=== PATIENT | female | born 2000 | race Caucasian/White ===

== ENCOUNTER 2021-06-10 18:57 | Emergency (ER) | payer BC, OTHER ==
--- NOTE | 2021-06-10 20:06 | RAD REPORT ---
EXAM DESCRIPTION: CT - Head Brain Wo Cont - 06/10/2021 7:58 pm CLINICAL HISTORY: numbness right arm COMPARISON: No comparisons TECHNIQUE: All CT scans are performed using dose optimization technique as appropriate and may inclu de automated exposure control or mA/KV adjustment according to patient size. FINDINGS: No intracranial hemorrhage, hydrocephalus or extra-axial fluid collection.No areas of brai n edema or evidence of midline shift. Circumferential thickening in the maxillary sinuses and ethmoid air cells. The calvarium is intact. IMPRESSION: No acute intracranial abnormality.
[2021-06-10] MEDS ORDERED: NA CHLORIDE 0.9% 1,000 ML ONE (20:09)
[2021-06-10 20:12] LABS: Urine Blood Negative (Negative); Urine Glucose Negative (Negative); Urine Protein 1+ (Negative); Urine Specific Gravity >=1.030 (1.005-1.030)
[2021-06-10 20:28] LABS: Absolute Lymphocytes (CBC) 0.7 K/uL (0.7-4.9); Hematocrit 35.9 % (36.0-45.0); Lymphocytes % 6.2 % (15.3-44.8); MPV 7.8 fL (7.6-11.3); RBC Red Blood Cell Count 4.04 M/uL (3.86-4.86)
[2021-06-10 20:52] LABS: ALT/SGPT 17 U/L (12-78); AST/SGOT 14 U/L (15-37); Albumin 3.6 g/dL (3.4-5.0); Alkaline Phosphatase 65 U/L (45-117); BUN Blood Urea Nitrogen 15 mg/dL (7-18); Bicarbonate 26 mmol/L (21-32); Bilirubin Direct 0.2 mg/dL (0-0.2); Bilirubin Total 0.7 mg/dL (0.2-1.0); Glucose Level 99 mg/dL (74-106); Lipase 72 U/L (73-393); Potassium 3.4 mmol/L (3.5-5.1); Protein, Total 7.5 g/dL (6.4-8.2); Sodium Level 138 mmol/L (136-145)
[2021-06-10 21:05] LABS: SARS-COV-2 RT PCR NEGATIVE (NEGATIVE)
--- NOTE | 2021-06-10 21:59 | ER ---
Nurse's Notes [facility] Name: Elida Mills Age: 21 yrs Sex: Female : 2000 Arrival Date: 06/10/2021 Time: 19:01 Bed 2 Private MD: Diagnosis: Vomiting;Diarrhea, unspecified;Paresthesia of skin;Acute sinusitis, unspecified Presentation: 06/10 19:17 Chief complaint: Patient states: "I stayed at home this afternoon from work. I had been tw5 having diarrhea and vomiting since yesterday. I woke up at 1700 with chills and shaking and then my right arm went numb. My right arm still feels tingling from the elbow down.". Coronavirus screen: Vaccine status: Patient reports being unvaccinated. Ebola Screen: Patient negative for fever greater than or equal to 101.5 degrees Fahrenheit, and additional compatible Ebola Virus Disease symptoms Patient denies exposure to infectious person. Patient denies travel to an Ebola-affected area in the 21 days before illness onset. Initial Sepsis Screen: Does the patient meet any 2 criteria? No. Patient's initial sepsis screen is negative. Does the patient have a suspected source of infection? No. Patient's initial sepsis screen is negative. Risk Assessment: Do you want to hurt yourself or someone else? Patient reports no desire to harm self or others. Onset of symptoms is unknown. 19:17 Method Of Arrival: Ambulatory tw5 19:17 Acuity: CARLOS 3 tw5 Triage Assessment: 19:22 General: Appears in no apparent distress. Behavior is calm, cooperative, appropriate tw5 for age. Pain: Complains of pain in dorsal aspect of right forearm, right wrist and right hand Pain currently is 6 out of 10 on a pain scale. GI: Reports diarrhea, nausea, vomiting. 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 - Social history:: Smoking status: Patient denies any tobacco usage or history of. Screenin:23 Abuse screen: Denies threats or abuse. Denies injuries from another. Nutritional tw5 screening: No deficits noted. Tuberculosis screening: No symptoms or risk factors identified. Fall Risk None identified. Assessment: 19:58 General: Appears uncomfortable, Behavior is calm, cooperative. Pain: Complains of pain ll3 in suprapubic area. Neuro: Level of Consciousness is awake, alert, obeys commands, Oriented to person, place, time, situation, Reports headache numbness in right arm. Cardiovascular: Patient's skin is warm and dry. Respiratory: Respiratory effort is even, unlabored, Respiratory pattern is regular, symmetrical. GI: Abdomen is flat, non-distended, Stools are reported to be loose, Reports lower abdominal pain, diarrhea, intolerance of fluids, intolerance of food, vomiting, since Since yesterday. : Reports urinary frequency. EENT: Reports nasal congestion nasal discharge Sore throat. Derm: Skin is pink, warm \\T\\ dry. 20:43 Reassessment: Patient appears in no apparent distress at this time. as6 21:51 Reassessment: Patient is alert, oriented x 3, equal unlabored respirations, skin ll3 warm/dry/pink. Vital Signs: 19:17 BP 95 / 48; Pulse 84; Resp 18; Temp 98.6; Pulse Ox 96% on R/A; Weight 63.5 kg; Height 5 tw5 ft. 2 in. (157.48 cm); Pain 6/10; 20:42 BP 108 / 73; Pulse 102; Resp 20 S; Pulse Ox 98% on R/A; as6 21:51 BP 102 / 66; Pulse 93; Resp 15; Pulse Ox 98% on R/A; ll3 23:00 BP 103 / 56; Pulse 87; Resp 18 S; Pulse Ox 97% on R/A; as6 19:17 Body Mass Index 25.61 (63.50 kg, 157.48 cm) tw5 ED Course: 19:01 Patient arrived in ED. ja2 19:20 Triage completed. tw5 19:22 Arm band placed on left wrist. tw5 19:23 Patient has correct armband on for positive identification. tw5 19:32 Siddharth Archibald RN is Primary Nurse. as6 19:34 German Mason NP is PHCP. pm1 19:34 Ravi Love MD is Attending Physician. pm1 19:57 CT Head Brain wo Cont In Process Unspecified. EDMS 20:17 Inserted saline lock: 20 gauge in right antecubital area, using aseptic technique. oe Blood collected. 20:18 COVID-19/FLU A+B (Document "Date of Onset" if Symptomatic) Sent. oe 20:18 Strep Sent. oe 23:13 No provider procedures requiring assistance completed. IV discontinued, intact, as6 bleeding controlled, No redness/swelling at site. Pressure dressing applied. Administered Medications: 20:10 Drug: NS 0.9% 1000 ml Route: IV; Rate: 1000 ml; Site: right antecubital; ll3 21:54 Follow up: Response: No adverse reaction; IV Status: Completed infusion; IV Intake: ll3 1000ml 22:45 Drug: Rocephin (cefTRIAXone) 1 grams Route: IV; Rate: calculated rate; Site: right ll3 antecubital; 23:13 Follow up: Response: No adverse reaction; IV Status: Completed infusion; IV Intake: [id number] Intake: 21:54 IV: 1000ml; Total: 1000ml. ll3 23:13 IV: 50ml; Total: 1050ml. as6 Outcome: 21:59 Discharge ordered by . pm1 23:13 Discharged to home ambulatory, with family. as6 23:13 Condition: stable 23:13 Discharge instructions given to patient, Instructed on discharge instructions, follow up and referral plans. medication usage, Demonstrated understanding of instructions, follow-up care, medications, Prescriptions given X 2. 23:14 Patient left the ED. as6 Signatures: Dispatcher [employer] EDMS German Mason, LEONA UNDERGROUND FOREMAN pm1 Bob Kline oe Kelli Pantoja Tiffany tw5 Siddharth Archibald, LILIANE RN as6 Donnie Rios RN RN ll3
--- NOTE | 2021-06-10 21:59 | EDPHYS ---
Physician Documentation [facility] Name: Elida Mills Age: 21 yrs Sex: Female : 2000 Arrival Date: 06/10/2021 Time: 19:01 Bed 2 Private MD: ED Physician Ravi oLve HPI: 06/10 19:53 This 21 yrs old Female presents to ER via Ambulatory with complaints of Vomiting, pm1 Numbness Of Arm, Ear Pain, CHILLS. 19:53 The patient presents to the emergency department with nausea, vomiting, diarrhea, fever pm1 onset today. Sinus congestion and pain for 2 weeks. Possible causes: unknown. The symptoms are aggravated by nothing. The symptoms are alleviated by nothing. Associated signs and symptoms: Pertinent positives: fever, Pertinent negatives: abdominal pain, dysuria. Severity of symptoms: in the emergency department the symptoms are worse. The patient has not experienced similar symptoms in the past. The patient has not recently seen a physician. 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 - Social history:: Smoking status: Patient denies any tobacco usage or history of. ROS: 19:53 Cardiovascular: Negative for chest pain, palpitations, and edema, Respiratory: Negative pm1 for shortness of breath, cough, wheezing, and pleuritic chest pain. 19:53 Back: Negative for injury and pain, MS/Extremity: Negative for injury and deformity, Skin: Negative for injury, rash, and discoloration, Neuro: Negative for headache, weakness, numbness, tingling, and seizure. 19:53 Constitutional: Positive for fever, poor PO intake. 19:53 ENT: Positive for ear pain, sinus congestion, sinus pain, Negative for sore throat. 19:53 Abdomen/GI: Positive for nausea and vomiting, diarrhea, Negative for abdominal pain. 19:53 Neuro: Positive for numbness, of the right hand and right forearm. 19:53 All other systems are negative. Exam: 19:53 Constitutional: This is a well developed, well nourished patient who is awake, alert, pm1 and in no acute distress. Head/Face: Normocephalic, atraumatic. 19:53 Skin: Warm, dry with normal turgor. Normal color with no rashes, no lesions, and no evidence of cellulitis. MS/ Extremity: Pulses equal, no cyanosis. Neurovascular intact. Full, normal range of motion. 19:53 Cardiovascular: Exam negative for acute changes, Rate: normal, Rhythm: regular, Pulses: no pulse deficits are appreciated. 19:53 Respiratory: Exam negative for acute changes, respiratory distress, shortness of breath, Breath sounds: are clear throughout. 19:53 Abdomen/GI: Inspection: abdomen appears normal, Palpation: abdomen is soft and non-tender, in all quadrants. 19:53 Neuro: Exam negative for acute changes, Orientation: is normal, Mentation: is normal, Motor: is normal, Sensation: is normal, no obvious gross deficits. Vital Signs: 19:17 BP 95 / 48; Pulse 84; Resp 18; Temp 98.6; Pulse Ox 96% on R/A; Weight 63.5 kg; Height 5 tw5 ft. 2 in. (157.48 cm); Pain 6/10; 20:42 BP 108 / 73; Pulse 102; Resp 20 S; Pulse Ox 98% on R/A; as6 21:51 BP 102 / 66; Pulse 93; Resp 15; Pulse Ox 98% on R/A; ll3 23:00 BP 103 / 56; Pulse 87; Resp 18 S; Pulse Ox 97% on R/A; as6 19:17 Body Mass Index 25.61 (63.50 kg, 157.48 cm) tw5 MDM: 19:49 Patient medically screened. pm1 21:58 Data reviewed: vital signs. Data interpreted: Pulse oximetry: on room air is 98 %. pm1 Interpretation: normal. Counseling: I had a detailed discussion with the patient and/or guardian regarding: the historical points, exam findings, and any diagnostic results supporting the discharge/admit diagnosis, lab results, radiology results, the need for outpatient follow up, to return to the emergency department if symptoms worsen or persist or if there are any questions or concerns that arise at home. 06/10 19:52 Order name: Basic Metabolic Panel; Complete Time: 21:00 pm1 06/10 19:52 Order name: CBC with Diff; Complete Time: 21:00 pm1 06/10 19:52 Order name: Hepatic Function; Complete Time: 21:00 pm1 06/10 19:52 Order name: Lipase; Complete Time: 21:00 pm1 06/10 19:52 Order name: COVID-19/FLU A+B (Document "Date of Onset" if Symptomatic); Complete Time: pm1 21:19 06/10 20:03 Order name: Strep; Complete Time: 21:00 pm1 06/10 19:52 Order name: CT Head Brain wo Cont; Complete Time: 20:15 pm1 06/10 19:52 Order name: IV Saline Lock; Complete Time: 20:10 pm1 06/10 19:52 Order name: Labs collected and sent; Complete Time: 20:10 pm1 06/10 20:11 Order name: Urine Dipstick-Ancillary; Complete Time: 20:15 EDTX 06/10 20:12 Order name: Urine --Ancillary (enter results); Complete Time: 20:28 9 06/10 20:59 Order name: Throat Culture EDTX 06/10 19:52 Order name: Urine Dipstick-Ancillary (obtain specimen); Complete Time: 20:10 pm1 06/10 19:52 Order name: Urine Test (obtain specimen); Complete Time: 20:10 pm1 Administered Medications: 20:10 Drug: NS 0.9% 1000 ml Route: IV; Rate: 1000 ml; Site: right antecubital; ll3 21:54 Follow up: Response: No adverse reaction; IV Status: Completed infusion; IV Intake: ll3 1000ml 22:45 Drug: Rocephin (cefTRIAXone) 1 grams Route: IV; Rate: calculated rate; Site: right ll3 antecubital; 23:13 Follow up: Response: No adverse reaction; IV Status: Completed infusion; IV Intake: [id number] Disposition: 06/11 01:33 Co-signature as Attending Physician, Ravi Love MD. [email or web address] Disposition Summary: 06/10/21 21:59 Discharge Ordered Location: Home pm1 Problem: new pm1 Symptoms: have improved pm1 Condition: Stable pm1 Diagnosis - Vomiting pm1 - Diarrhea, unspecified pm1 - Paresthesia of skin pm1 - Acute sinusitis, unspecified pm1 Followup: pm1 - With: Emergency Department - When: As needed - Reason: Worsening of condition Followup: pm1 - With: Private Physician - When: 2 - 3 days - Reason: Recheck today's complaints, Continuance of care, Re-evaluation by your physician Discharge Instructions: - Discharge Summary Sheet pm1 - Food Choices to Help Relieve Diarrhea, Adult pm1 - Diarrhea, Adult pm1 - Paresthesia pm1 - Viral Gastroenteritis, Adult pm1 - Sinusitis, Adult pm1 - Vomiting, Child pm1 Forms: - Medication Reconciliation Form pm1 - Thank You Letter pm1 - Antibiotic Education pm1 - Prescription Opioid Use pm1 Prescriptions: - ondansetron 4 mg Oral tablet,disintegrating - place 1 tablet by TRANSLINGUAL route every 8 hours As needed; 15 tablet; pm1 Refills: 0, Product Selection Permitted - Augmentin 875-125 mg Oral Tablet - take 1 tablet by ORAL route every 12 hours for 10 days; 20 tablet; Refills: 0, pm1 Product Selection Permitted Signatures: Dispatcher [employer] German Martinez, LEONA BUDGET ENGINEER pm1 Ravi Love MD MD 7 Cris Harmon 5 Donnie Rios RN RN ll3 Siddharth Archibald RN as6
[2021-06-10] MEDS ORDERED: NA CHLORIDE 0.9% 50 ML ONE (22:38)
[2021-06-10] MEDS ORDERED: CEFTRIAXONE 1000 MG/VIAL ONE (22:38)
[2021-06-10 23:34] VITALS: BP 103/56; O2SAT 97
[2021-06-10 23:37] VITALS: TEMP 98.6
== END 2021-06-10 23:14 | disposition home or self-care (01) ==
LOC: ER 18:57
DX: R19.7 Diarrhea, unspecified (principal); J01.90 Acute sinusitis, unspecified; R20.2 Paresthesia of skin; Z20.822 Contact with and (suspected) exposure to COVID-19
CPT/HCPCS: 96365; 96361; 87070; 85025; 80048; 36415; 81025; 80076; 87081; 81003; 83690; 0240U; 70450; 99284; J7030

== ENCOUNTER 2021-12-27 22:36 | Emergency (ER) | payer BC ==
[2021-12-27 23:02] LABS: Urine Blood Negative (Negative); Urine Glucose Negative (Negative); Urine Protein Trace (Negative); Urine pH 8.5 (5.0-7.0)
[2021-12-27 23:21] LABS: Urine Mucus Slight /HPF (None Seen); Urine RBC <5 /HPF (None Seen)
--- NOTE | 2021-12-27 23:31 | RAD REPORT ---
EXAM DESCRIPTION: US - Abdomen Exam Limited - 12/27/2021 11:22 pm CLINICAL HISTORY: N/V Abdominal pain COMPARISON: No comparisons FINDINGS: The gallbladder demonstrates no gallstones. No pericholecystic fluid or gallbladder wall t hickening. The common bile duct is normal measuring 3 mm. The liver demonstrates no findings of intrahepatic biliary dilatation. IMPRESSION: Unremarkable examination.
[2021-12-27] MEDS ORDERED: NA CHLORIDE 0.9% 1,000 ML ONE (23:36)
[2021-12-27] MEDS ORDERED: FAMOTIDINE 20 MG/2 ML VIAL IV ONE (23:36)
[2021-12-27] MEDS ORDERED: ONDANSETRON 4 MG/2 ML VIAL ONE (23:36)
[2021-12-28 00:10] LABS: Hematocrit 34.5 % (36.0-45.0); MCV 86.8 fL (80-100); MPV 8.1 fL (7.6-11.3); RBC Red Blood Cell Count 3.97 M/uL (3.86-4.86)
[2021-12-28 00:21] LABS: ALT/SGPT 19 U/L (12-78); Albumin 3.4 g/dL (3.4-5.0); Alkaline Phosphatase 67 U/L (45-117); BUN Blood Urea Nitrogen 15 mg/dL (7-18); Bicarbonate 26 mmol/L (21-32); Glomerular Filtration Rate 122 ml/min (=/>90); Glucose Level 90 mg/dL (74-106); Lipase 85 U/L (73-393); Protein, Total 6.9 g/dL (6.4-8.2); Sodium Level 140 mmol/L (136-145)
[2021-12-28 00:23] LABS: AST/SGOT 16 U/L (15-37); Bilirubin Total < 0.1 mg/dL (0.2-1.0); Potassium 3.8 mmol/L (3.5-5.1)
[2021-12-28 00:40] LABS: Blood Morphology Comment NOT SEEN (NOT SEEN); Platelet Estimate ADEQ
--- NOTE | 2021-12-28 00:54 | EDPHYS ---
Physician Documentation [facility] Name: Elida Mills Age: 21 yrs Sex: Female : 2000 Arrival Date: 12/27/2021 Time: 22:41 Bed 5 Private MD: ED Physician Bimal Danielle HPI: 12/27 23:00 This 21 yrs old Female presents to ER via Ambulatory with complaints of Vomiting, High cp Blood Sugar. 23:00 The patient presents to the emergency department with vomiting, that is intermittent, cp described as bilious. Onset: The symptoms/episode began/occurred 3 month(s) ago. 23:00 Possible causes: possible diabetes. patient reports when check blood glucose that it cp has been elevated at times. 23:00 Associated signs and symptoms: Pertinent negatives: abdominal pain, anorexia, cp constipation, diarrhea, fever, GI bleeding, active vomiting. Severity of symptoms: in the emergency department the symptoms are unchanged despite home interventions. 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 - Social history:: Smoking status: Patient denies any tobacco usage or history of. Patient/guardian denies using alcohol. ROS: 23:05 Constitutional: Negative for body aches, chills, fever, poor PO intake. cp 23:05 Eyes: Negative for injury, pain, redness, and discharge. cp 23:05 ENT: Negative for drainage from ear(s), ear pain, sore throat, difficulty swallowing, difficulty handling secretions. 23:05 Cardiovascular: Negative for chest pain, edema, palpitations. 23:05 Respiratory: Negative for cough, shortness of breath, wheezing. 23:05 Abdomen/GI: Positive for nausea and vomiting, Negative for abdominal pain, diarrhea, constipation, anorexia, hematemesis. 23:05 Back: Negative for pain at rest, pain with movement. 23:05 : Negative for urinary symptoms. 23:05 Neuro: Negative for altered mental status, dizziness, headache, weakness. 23:05 All other systems are negative. Exam: 23:10 Constitutional: The patient appears in no acute distress, alert, awake, comfortable, cp non-toxic, well developed, well nourished. 23:10 Head/Face: Normocephalic, atraumatic. cp 23:10 Eyes: Periorbital structures: appear normal, Conjunctiva: normal, no exudate, no injection, Sclera: no appreciated abnormality, Lids and lashes: appear normal, bilaterally. 23:10 ENT: External ear(s): are unremarkable, Nose: is normal, Mouth: Lips: moist, Oral mucosa: pink and intact, moist, Posterior pharynx: Airway: no evidence of obstruction, patent. 23:10 Chest/axilla: Inspection: normal. 23:10 Cardiovascular: Rate: tachycardic, Rhythm: regular, Edema: is not appreciated, JVD: is not appreciated. 23:10 Respiratory: the patient does not display signs of respiratory distress, Respirations: normal, no use of accessory muscles, no retractions, labored breathing, is not present, Breath sounds: are clear throughout, no decreased breath sounds, no stridor, no wheezing. 23:10 Abdomen/GI: Inspection: abdomen appears normal, Bowel sounds: active, all quadrants, Palpation: abdomen is soft and non-tender, in all quadrants, rebound tenderness, is not appreciated, voluntary guarding, is not appreciated, involuntary guarding, is not appreciated. 23:10 Back: pain, is absent, ROM is normal. 23:10 Neuro: Orientation: to person, place \T\ time. Mentation: is normal, Motor: moves all fours, strength is normal, Sensation: is normal. Vital Signs: 22:49 BP 125 / 93; Pulse 108; Resp 14; Temp 98.1(O); Pulse Ox 99% on R/A; Weight 70.31 kg; ld1 Height 5 ft. 2 in. (157.48 cm); Pain 0/10; 23:01 BP 115 / 84; Pulse 105; Resp 16; Pulse Ox 99% on R/A; Pain 0/10; tw5 23:40 BP 111 / 82; Pulse 82; Resp 18; Pulse Ox 97% on R/A; tw5 12/28 01:00 BP 109 / 76; Pulse 77; Resp 23; Pulse Ox 100% on R/A; jb4 12/27 22:49 Body Mass Index 28.35 (70.31 kg, 157.48 cm) ld1 MDM: 12/27 22:52 Patient medically screened. cp 23:00 Differential diagnosis: gastritis, cholecystitis, pancreatitis, viral gastroenteritis, cp gastroenteritis. 12/28 00:49 Data reviewed: vital signs, nurses notes, lab test result(s), radiologic studies, plain cp films, ultrasound. 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 Response to treatment: the patient's symptoms have markedly improved after treatment, VSS. Nausea markedly improved. Patient denies abdominal pain and on exam abdomen is non-tender. Will discharge to home for continued monitoring. 12/27 22:48 Order name: CBC with Diff; Complete Time: 00:48 cp 12/28 00:39 Interpretation: Normal except: HCT 34.5; ALICIA% 33.4; LYM% 51.0; EOSINOPHIL % 8.1; EOSA cp 0.6. 12/27 22:48 Order name: CMP; Complete Time: 00:39 cp 12/28 00:39 Interpretation: Normal except: CL 109; BILIT < 0.1; A/G 1.0. cp 12/27 22:48 Order name: Lipase; Complete Time: 00:39 cp 12/27 22:48 Order name: Urine Microscopic Only; Complete Time: 23:28 cp 12/27 23:02 Order name: Urine Dipstick-Ancillary; Complete Time: 23:28 EDMS 12/27 23:28 Interpretation: Normal except: UPH 8.5; UPROT Trace. cp 12/27 23:08 Order name: Urine --Ancillary (enter results); Complete Time: 23:36 ds4 12/27 22:48 Order name: IV Saline Lock; Complete Time: 23:35 cp 12/27 22:48 Order name: Labs collected and sent; Complete Time: 23:11 cp 12/27 22:49 Order name: US Abdomen Limited: Gallbladder; Complete Time: 23:36 cp 12/27 23:37 Interpretation: Report reviewed. cp 12/27 23:37 Order name: XRAY Chest (1 view) cp 12/28 00:15 Order name: Manual Differential; Complete Time: 00:48 EDMS 12/28 00:48 Interpretation: Normal except: SEGS 32; LYM 56; EOS 5. cp 12/27 22:48 Order name: Urine Dipstick-Ancillary (obtain specimen); Complete Time: 23:11 cp 12/27 22:48 Order name: Urine Test (obtain specimen); Complete Time: 23:11 cp 12/27 22:49 Order name: NPO; Complete Time: 22:51 cp 12/28 00:40 Order name: PO challenge; Complete Time: 01:11 cp Administered Medications: 12/27 23:35 Drug: Zofran (Ondansetron) 4 mg Route: IVP; Site: right hand; tw5 23:37 Drug: NS 0.9% 1000 ml Route: IV; Rate: 1 bolus; Site: right hand; tw5 23:37 Drug: Pepcid (famotidine) 20 mg Route: IVP; Site: right hand; tw5 Disposition: 12/28 09:23 Co-signature as Attending Physician, Bimal RUDOLPH was immediately available on-site ms3 in the Emergency Department for consultation in the care of the patient.. Disposition Summary: 12/28/21 00:53 Discharge Ordered Location: Home cp Problem: new cp Symptoms: have improved cp Condition: Stable cp Diagnosis - Nausea with vomiting, unspecified cp Followup: cp - With: Julio Aguilera MD - When: 2 - 3 days - Reason: Recheck today's complaints Followup: cp - With: Julio Aguilera MD - When: 1 week - Reason: Recheck today's complaints Discharge Instructions: - Discharge Summary Sheet cp - Nausea and Vomiting, Adult cp Forms: - Medication Reconciliation Form cp - Thank You Letter cp - Antibiotic Education cp - Prescription Opioid Use cp Prescriptions: - Pepcid 20 mg Oral Tablet - take 1 tablet by ORAL route every 12 hours for 10 days; 20 tablet; Refills: 0, cp Product Selection Permitted - Zofran 4 mg Oral Tablet - take 1 tablet by ORAL route every 12 hours As needed; 20 tablet; Refills: 0, cp Product Selection Permitted Signatures: [facility] Naseem Rojo PA PA cp Bimal Danielle, DO MATA ms3 Mari Eddy RN RN ld1 Cris Harmon tw5 Corrections: (The following items were deleted from the chart) 00:39 00:39 Normal except: CL 109. cp cp 00:39 00:39 Normal except: CL 109; BILIT < 0.1. cp cp
--- NOTE | 2021-12-28 00:54 | ER ---
Nurse's Notes [facility] Name: Elida Mills Age: 21 yrs Sex: Female : 2000 Arrival Date: 12/27/2021 Time: 22:41 Bed 5 Private MD: Diagnosis: Nausea with vomiting, unspecified Presentation: 12/27 22:49 Chief complaint: Patient states: Intermittent N/V for 3 months. Pt reporting recent ld1 increase in blood sugars - reporting BG of 170. Coronavirus screen: At this time, the client does not indicate any symptoms associated with coronavirus-19. Ebola Screen: No symptoms or risks identified at this time. Initial Sepsis Screen: Does the patient meet any 2 criteria? No. Patient's initial sepsis screen is negative. Does the patient have a suspected source of infection? No. Patient's initial sepsis screen is negative. Risk Assessment: Do you want to hurt yourself or someone else? Patient reports no desire to harm self or others. Onset of symptoms was December 27, 2021. 22:49 Method Of Arrival: Ambulatory ld1 22:49 Acuity: CARLOS 3 ld1 Triage Assessment: 22:51 General: Appears in no apparent distress. comfortable, Behavior is cooperative, ld1 anxious. Pain: Denies pain. EENT: No signs and/or symptoms were reported regarding the EENT system. Neuro: Level of Consciousness is awake, alert, obeys commands, Oriented to person, place, time, situation. Cardiovascular: Capillary refill < 3 seconds Patient's skin is warm and dry. Cardiovascular: Rhythm is sinus tachycardia. Respiratory: Airway is patent Respiratory effort is even, unlabored. GI: Abdomen is round non-distended, Reports nausea, vomiting. : No signs and/or symptoms were reported regarding the genitourinary system. Derm: No signs and/or symptoms reported regarding the dermatologic system. Musculoskeletal: No signs and/or symptoms reported regarding the musculoskeletal system. 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 - Social history:: Smoking status: Patient denies any tobacco usage or history of. Patient/guardian denies using alcohol. Screenin:01 Abuse screen: Denies threats or abuse. Denies injuries from another. Nutritional tw5 screening: No deficits noted. Tuberculosis screening: No symptoms or risk factors identified. Fall Risk None identified. Assessment: 23:01 General: Reports "I have been throwing up for the past couple of months, yesterday i tw5 saw my blood sugar was 173. I have been having the same symptoms that my dad had before he was diagnosed with diabetes.". Pain: Pain currently is 0 out of 10 on a pain scale. Cardiovascular: Capillary refill < 3 seconds. Respiratory: Airway is patent Trachea midline Respiratory effort is even, unlabored. GI: Reports nausea, vomiting. GI: Abdomen is non-distended. Derm: No deficits noted. 23:35 Reassessment: Patient appears in no apparent distress at this time. No changes from tw5 previously documented assessment. Patient and/or family updated on plan of care and expected duration. Pain level reassessed. Patient is alert, oriented x 3, equal unlabored respirations, skin warm/dry/pink. 12/28 01:11 Reassessment: Patient appears in no apparent distress at this time. Patient and/or jb4 family updated on plan of care and expected duration. Pain level reassessed. Patient is alert, oriented x 3, equal unlabored respirations, skin warm/dry/pink. Vital Signs: 12/27 22:49 BP 125 / 93; Pulse 108; Resp 14; Temp 98.1(O); Pulse Ox 99% on R/A; Weight 70.31 kg; ld1 Height 5 ft. 2 in. (157.48 cm); Pain 0/10; 23:01 BP 115 / 84; Pulse 105; Resp 16; Pulse Ox 99% on R/A; Pain 0/10; tw5 23:40 BP 111 / 82; Pulse 82; Resp 18; Pulse Ox 97% on R/A; tw5 12/28 01:00 BP 109 / 76; Pulse 77; Resp 23; Pulse Ox 100% on R/A; jb4 12/27 22:49 Body Mass Index 28.35 (70.31 kg, 157.48 cm) ld1 ED Course: 12/27 22:41 Patient arrived in ED. dt4 22:43 Naseem Rojo PA is PHCP. cp 22:43 Bimal Danielle DO is Attending Physician. cp 22:50 Jan Vergara, LILIANE is Primary Nurse. jb4 22:51 Triage completed. ld1 22:51 Arm band placed on right wrist. ld1 23:01 Patient has correct armband on for positive identification. Placed in gown. Bed in low tw5 position. Call light in reach. Side rails up X 1. Client placed on continuous cardiac and pulse oximetry monitoring. NIBP monitoring applied. Pulse ox on. NIBP on. Door closed. Noise minimized. Moved to private room. Pillow given. Verbal reassurance given. 23:24 US Abdomen Limited: Gallbladder In Process Unspecified. EDMS 23:35 CBC with Diff Sent. tw5 23:35 CMP Sent. tw5 23:35 Lipase Sent. tw5 23:35 Initial lab(s) drawn, by md, sent to lab. Inserted saline lock: 20 gauge in right hand, tw5 using aseptic technique. Blood collected. 12/28 00:12 XRAY Chest (1 view) In Process Unspecified. EDMS 00:52 Julio Aguilera MD is Referral Physician. cp 00:52 Referral Physician role handed off by Julio Aguilera MD cp 00:52 Julio Aguilera MD is Referral Physician. cp 01:00 No provider procedures requiring assistance completed. IV discontinued, intact, jb4 bleeding controlled, No redness/swelling at site. Pressure dressing applied. Administered Medications: 12/27 23:35 Drug: Zofran (Ondansetron) 4 mg Route: IVP; Site: right hand; tw5 23:37 Drug: NS 0.9% 1000 ml Route: IV; Rate: 1 bolus; Site: right hand; tw5 23:37 Drug: Pepcid (famotidine) 20 mg Route: IVP; Site: right hand; tw5 Medication: 23:01 VIS not applicable for this client. tw5 Outcome: 12/28 00:53 Discharge ordered by . cp 01:12 Discharged to home ambulatory, with family. jb4 01:12 Condition: stable 01:12 Discharge instructions given to patient, Instructed on discharge instructions, follow up and referral plans. medication usage, Demonstrated understanding of instructions, follow-up care, medications, Prescriptions given X 2. 01:12 Patient left the ED. jb4 Signatures: Dispatcher [employer] EDMS Naseem Rojo PA PA cp Bryson, James RN RN jb4 Mari Eddy RN RN rhoda1 Cris Harmon tw5 Azeb Snowden dt4
--- NOTE | 2021-12-28 14:06 | RAD REPORT ---
EXAM DESCRIPTION: Chest Single View CLINICAL HISTORY: 21 years Female N/V TECHNIQUE: One view of the chest. COMPARISON: No prior exams provided for comparison. FINDINGS: The lungs are clear without focal consolidation, effusion, or pneumothorax. The cardiomedi astinal silhouette and central pulmonary vasculature are normal. No acute osseous abnormalities. IMPRESSION: No acute cardiopulmonary abnormalities. Electronically signed by: Amy Clifton MD 12/28/2021 12:21 AM CDT Due to temporary technical issues with the PACS/Fluency reporting system, reports are being signed by the in house radiologists without review as a courtesy to insure prompt reporting. The interpreting radiologist is fully responsible for the content of the report.
[2021-12-29 19:24] VITALS: TEMP 98.1
[2021-12-29 19:30] VITALS: BP 109/76; O2SAT 100
== END 2021-12-28 01:12 | disposition home or self-care (01) ==
LOC: ER 22:36
DX: R11.2 Nausea with vomiting, unspecified (principal)
CPT/HCPCS: 85025; 36415; 81025; 83690; 80053; 71045; 76705; 96375; 96374; 99284; J7030; J2405; 81003; 81015

== ENCOUNTER 2024-04-17 20:18 | Emergency (ER) | payer BC, OTHER ==
--- OUTSIDE RECORDS SUMMARY | 2024-04-17 20:20 | XMS REPORT | Continuity of Care Document ---
Author Name Unknown Address [address] [place] [address] [facility] thconnect Address [address] [place] [address] Care Team Providers Care E Commerce Solution Architect Name Role Phone [email or web address] Attending Clinician SOO Cole Attending Clinician Unavailable [email or web address] Admitting Clinician Isabelle lagos Payers Payer Name Policy Type Policy Number Effective Date Expir[place] on Date Source [place] [id number] 2022 00:00:00 BCBS 2 [id number] 2022 00:00:00 Social History Social Habit Start Date Stop Date Quantity Comments Source Gender identity Milvia Erwin - External Sexual orientation K kobe Erwin - External Sex Assigned At 2000 00:00:00 2000 00:00:00 Karin Erwin - External Smoking Status Start Date Stop Date Source Tobacco smoking consumption unknown Karin Erwin - External Medications Ordered Medication Name Filled Medication Name Start Date Stop Date Current Medication? Ordering Clinician Indication Dosage Frequency Signature (SIG) Comments Components Source Pseudoeph-B romphen-DM 30-2-10 MG/5ML oral Syrup 09-20 00:00: 00 Yes [id number] 10mL Q.25D Take 10 mL by mouth 4 times daily as needed Karin Erwin - Externa l methylPREDN ISolone 4 MG oral Tablet Therapy Pack 09-20 00:00: 00 Yes [id number] 1{sailaja} Take 1 sailaja by mouth See Admin Instructio ns Use as directed Karin Erwin - Martin harkins Encounters Start Date/Time End Date/Time Encounter Type Admission Type Attending [facility] Care Department Encounter ID Source 2023-04-11 00:00:00 2023-04-11 00:00:00 Outpatient [email or web address] PRIV PRIV [id number] [facility] 2023-04-10 00:00:00 2023-04-10 00:00:00 Outpatient [email or web address] PRIV PRIV [id number] [facility] 2023-04-02 00:00:00 2023-04-02 00:00:00 Outpatient [email or web address] PRIV PRIV [id number] [facility] 2022-09-20 10:15:00 2022-09-20 10:15:00 Outpatient [facility] [id number] Karin Erwin
--- NOTE | 2024-04-17 20:36 | ER ---
Nurse's Notes [facility] Name: Elida Mills Age: 23 yrs Sex: Female : 2000 Arrival Date: 04/17/2024 Time: 20:18 Bed 8 Private MD: Diagnosis: Influenza;Lymphadenopathy Presentation: 04/17 20:28 Chief complaint: Patient states: went to urgent care on Saturday due to fever x2 days. tm6 They said I have flu B and my tonsils are swollen with a possible infection or abscess. They told me to go to the ER if it got worse or if I had trouble swallowing. Today it has gotten more difficult to swallow. Coronavirus screen: Client denies travel out of the [place] in the last 14 days. Ebola Screen: Patient negative for fever greater than or equal to 101.5 degrees Fahrenheit, and additional compatible Ebola Virus Disease symptoms Patient denies exposure to infectious person. Patient denies travel to an Ebola-affected area in the 21 days before illness onset. No symptoms or risks identified at this time. Initial Sepsis Screen: Does the patient meet any 2 criteria? HR > 90 bpm. Does the patient have a suspected source of infection? No. Patient's initial sepsis screen is negative. Risk Assessment: Do you want to hurt yourself or someone else? Patient reports no desire to harm self or others. Onset of symptoms was April 15, 2024. 20:28 Method Of Arrival: Ambulatory tm6 20:28 Acuity: CARLOS 3 tm6 Triage Assessment: 20:30 General: Appears in no apparent distress. Behavior is calm, cooperative. Pain: tm6 Complains of pain in throat Pain currently is 6 out of 10 on a pain scale. EENT: Reports pain in throat difficulty swallowing. Neuro: Level of Consciousness is awake, alert, obeys commands, Oriented to person, place, time, situation. Cardiovascular: Patient's skin is warm and dry. Respiratory: Airway is patent Respiratory effort is even, unlabored, Respiratory pattern is regular, symmetrical. GI: No signs and/or symptoms were reported involving the gastrointestinal system. Abdomen is flat, non-distended. : No signs and/or symptoms were reported regarding the genitourinary system. Derm: No signs and/or symptoms reported regarding the dermatologic system. Musculoskeletal: No signs and/or symptoms reported regarding the musculoskeletal system. 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 - Infectious Disease History:: Denies. - Social history:: Smoking status: Patient denies any tobacco usage or history of. Screenin:41 [facility] ED Fall Risk Assessment (Adult) History of falling in the last 3 months, cp4 including since admission No falls in past 3 months (0 pts) Confusion or Disorientation No (0 pts) Intoxicated or Sedated No (0 pts) Impaired Gait No (0 pts) Mobility Assist Device Used No (0 pt) Altered Elimination No (0 pt) Score/Fall Risk Level 0 - 2 = Low Risk Oriented to surroundings, Maintained a safe environment, Assessed \T\ reinforced patient's understanding of fall precautions, Hourly rounding (assess needs \T\ fall precautionary measures) done. Abuse screen: Denies threats or abuse. Denies injuries from another. Nutritional screening: No deficits noted. Tuberculosis screening: No symptoms or risk factors identified. Assessment: 20:41 General: Appears in no apparent distress. uncomfortable, Behavior is calm, cooperative, cp4 appropriate for age. Pain: Denies pain. Neuro: Level of Consciousness is awake, alert, obeys commands, Oriented to person, place, time, situation. Cardiovascular: Patient's skin is warm and dry. Respiratory: Airway is patent Respiratory effort is even, unlabored. GI: No signs and/or symptoms were reported involving the gastrointestinal system. : No signs and/or symptoms were reported regarding the genitourinary system. EENT: Reports difficulty swallowing. Derm: No signs and/or symptoms reported regarding the dermatologic system. Musculoskeletal: No signs and/or symptoms reported regarding the musculoskeletal system. Vital Signs: 20:27 BP 126 / 83; Pulse 113; Pulse Ox 99% ; ec2 20:28 BP 126 / 83; Pulse 116; Resp 19; Temp 98.6(O); Pulse Ox 99% on R/A; MAP 97 mmHg; Weight tm6 73.94 kg; Height 5 ft. 3 in. ; Pain 6/10; 20:58 BP 114 / 67; Pulse 103; Resp 18; Pulse Ox 100% ; cp4 20:28 Body Mass Index 28.87 (73.94 kg, 160.02 cm) tm6 20:28 Pain Scale: Adult tm6 ED Course: 20:20 Patient arrived in ED. jj6 20:20 Brandan Mullins MD is Attending Physician. ec2 20:30 Triage completed. tm6 20:30 Arm band placed on right wrist. tm6 20:41 Sofi Grey is Primary Nurse. cp4 20:41 Bed in low position. Call light in reach. Side rails up X 1. cp4 20:41 No provider procedures requiring assistance completed. Patient did not have IV access cp4 during this emergency room visit. 21:11 Provided Education on: influenza. cp4 Administered Medications: 20:49 Drug: Dexamethasone IM 10 mg IM once Route: IM; Site: right ventrogluteal; cp4 20:58 Follow up: Response: No adverse reaction cp4 Medication: 20:41 VIS not applicable for this client. cp4 Outcome: 20:35 Discharge ordered by . ec2 21:11 Discharged to home ambulatory, cp4 21:11 Condition: stable 21:11 Discharge instructions given to patient, family, Instructed on discharge instructions, follow up and referral plans. medication usage, Demonstrated understanding of instructions, follow-up care, medications, Prescriptions given X 1, 21:12 Patient left the ED. cp4 Signatures: Baylee Suazo j6 Brandan Mullins MD MD ec2 Sofi Grey cp4 Inés Roy RN RN 6
--- NOTE | 2024-04-17 20:36 | EDPHYS ---
Physician Documentation [facility] Name: Elida Mills Age: 23 yrs Sex: Female : 2000 Arrival Date: 04/17/2024 Time: 20:18 Bed 8 Private MD: ED Physician Brandan Mullins HPI: 04/17 20:36 This 23 yrs old Female presents to ER via Ambulatory with complaints of ec2 Swollen Glands, Difficulty Swallowing. 20:36 Patient is known flu positive arrives today for lymphadenopathy and odynophagia. ec2 Patient reports that she is been having worsening throat pain, states that she wanted to be reevaluated as she gets a sensation that her throat is closing. Patient reports no difficulty breathing. Reports she been having some nausea, cough and cold symptoms, myalgias as well as subjective fevers and chills. Was recently seen at urgent care, tested positive for flu, negative for strep and COVID otherwise. No medical problems, no daily medications. Was prescribed Tamiflu, Zofran, cough medication. 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 - Infectious Disease History:: Denies. - Social history:: Smoking status: Patient denies any tobacco usage or history of. ROS: 20:36 Constitutional: as per hpi ec2 Exam: 20:36 Constitutional: GEN: NAD Head: atraumatic Eyes: EOMI Ears: External ears are normal. ec2 Mouth: Anterior cervical lymphadenopathy noted. Posterior pharyngeal exudates. No significant swelling appreciated. No stridor noted. CV: Tachycardia LUNGS: no respiratory distress, no wheezes or rales or rhonchi. ABD: non-distended, soft, nontender SKIN: no evidence of rashes MSK: no evidence of trauma Vital Signs: 20:27 BP 126 / 83; Pulse 113; Pulse Ox 99% ; ec2 20:28 BP 126 / 83; Pulse 116; Resp 19; Temp 98.6(O); Pulse Ox 99% on R/A; MAP 97 mmHg; Weight tm6 73.94 kg; Height 5 ft. 3 in. ; Pain 6/10; 20:58 BP 114 / 67; Pulse 103; Resp 18; Pulse Ox 100% ; cp4 20:28 Body Mass Index 28.87 (73.94 kg, 160.02 cm) tm6 20:28 Pain Scale: Adult tm6 MDM: 20:20 Medical Screening Exam initiated ec2 20:36 Data reviewed: vital signs, nurses notes. ED course: Patient arrives today for sore ec2 throat as well as lymphadenopathy. Examination is revealing for tachycardia as well as HEENT findings as above. Suspect this is all sequela from patient's known influenza. I will start the patient on steroids to help with her odynophagia and swelling. Considered retesting for strep however patient fits classic viral prodrome and patient with a Centor score of 2. Will continue with treatment of viral process. Differentials considered include influenza, strep pharyngitis, Jared angina. Administered Medications: 20:49 Drug: Dexamethasone IM 10 mg IM once Route: IM; Site: right ventrogluteal; cp4 20:58 Follow up: Response: No adverse reaction cp4 Disposition Summary: 04/17/24 20:35 Discharge Ordered Notes: Location: Home ec2 Condition: Stable ec2 Diagnosis - Influenza ec2 - Lymphadenopathy ec2 Followup: ec2 - With: Private Physician - When: - Reason: Re-evaluation by your physician Discharge Instructions: - Discharge Summary Sheet ec2 - Influenza, Adult ec2 Forms: - Medication Reconciliation Form ec2 - Antibiotic Education ec2 - Prescription Opioid Use ec2 - Patient Portal Instructions ec2 - Leadership Thank You Letter ec2 Prescriptions: - Prednisone 20 mg Oral Tablet - take 2 tablets ORAL route once daily for 5 days; 10 tablet; Refills: 0, Product ec2 Selection Permitted Signatures: Brandan Mullins MD MD ec2 Sofi Grey cp4 Inés Roy RN RN tm6
[2024-04-17] MEDS ORDERED: dexAMETHasone 10 MG/ML VIAL ONE (20:47)
[2024-04-17 21:47] VITALS: BP 114/67; TEMP 98.6; O2SAT 100
== END 2024-04-17 21:12 | disposition home or self-care (01) ==
LOC: ER 20:18
DX: J11.1 Influenza due to unidentified influenza virus with other respiratory manifestations (principal); R59.1 Generalized enlarged lymph nodes
CPT/HCPCS: 96372; 99284; J1100